=== PATIENT | female | born 1960 | race Asian ===

== ENCOUNTER 2017-01-01 19:56 | Emergency (ER) | payer BC ==
[~2017-01-01] VITALS: Ht 152.4 cm; Wt 54.5 kg
[2017-01-01 20:06] VITALS: Ht 152.4 cm; Wt 54.5 kg
[2017-01-01] MEDS ORDERED: NAPH15DR22 BOTH EYES (20:23)
--- NOTE | 2017-01-01 20:34 | ERD ---
ER Documentation Chief Complaint Date/Time DATE: 01/01/17 TIME: 20:31 Chief Complaint pt used eye drops , redness and pain HPI 56-year-old female presents to emergency department for complaints of itching burning sensation in both eyes after applying refresh eyedrops in both eyes. Patient states that she rinsed both eyes with normal saline, felt much better afterwards. Patient still some redness and some burning sensation in both eyes, 4/10 scale, not better or worse with anything. Patient denies any eye discharge. Patient denies anymore and body sensation in the eye. Patient denies any vision changes. Patient denies any direct trauma in the eye. ROS All systems reviewed and are negative except as per history of present illness. Medications Home Meds Active Scripts Naphazoline-Pheniramine* (Visine-A*) 15 Ml Drops, 2 DROP BOTH EYES Q4H Y for RED EYES, #1 BOT Prov:DERECK BOWSER [employer] 01/01/17 Allergies Allergies: Coded Allergies: No Known Allergy (Unverified , 01/01/17) PMhx/Soc Medical and Surgical Hx: pt denies Medical Hx, pt denies Surgical Hx History of Surgery: No Anesthesia Reaction: No Hx Neurological Disorder: No Hx Respiratory Disorders: No Hx Cardiac Disorders: No Hx Psychiatric Problems: No Hx Miscellaneous Medical Probl: No Hx Alcohol Use: No Hx Substance Use: No Hx Tobacco Use: No FmHx Family History: No coronary disease, No diabetes, No other Physical Exam Vitals Vital Signs Date Time Temp Pulse Resp B/P Pulse Ox O2 Delivery O2 Flow Rate FiO2 01/01/17 20:06 98.6 60 18 127/70 100 Physical Exam GENERAL: The patient is well developed and appropriate for usual state of health, in no apparent distress. HEENT: Atraumatic. Eyes are PERRL EOM intact. Bilateral eye conjunctivae noninjected, watery, no purulent discharge. Ears: Normal tympanic membrane, no erythema or bulging. No ear canal swelling. No ear discharge. Nose: normal nasal turbinates, no erythema or swelling. Normal nasal discharge. Throat: oropharynx clear. No tonsillar swelling or tonsillar exudates. No lymphadenopathy. CHEST: Clear to auscultation bilaterally. There are no rales, wheezes or rhonchi. HEART: Regular rate and rhythm. No murmurs, clicks, rubs or gallops. No S3 or S4. ABDOMEN: Soft, nontender and nondistended. Good bowel sounds. No rebound or guarding. No gross peritonitis. No gross organomegaly or masses. No Avery sign or McBurney point tenderness. BACK: No midline or flank tenderness. EXTREMITIES: Equal pulses bilaterally. There is no peripheral clubbing, cyanosis or edema. No focal swelling or erythema. Full range of motion. Grossly neurovascularly intact. NEURO: Alert and oriented. Cranial nerves 2-12 intact. Motor strength in all 4 extremities with 5/5 strength. Sensation grossly intact. Normal speech and gait. SKIN: There is no apparent rash or petechia. The skin is warm and dry. HEMATOLOGIC AND LYMPHATIC: There is no evidence of excessive bruising or lymphedema. No gross cervical, axillary, or inguinal lymphadenopathy. Procedures/MDM Medical decision making: Patient's eye redness most likely from irritation from the eyedrops. At this time, no symptoms of any eye emergencies at this time. Patient does not have any symptoms of retinal detachment, acute closed angle glaucoma, or any other eye emergencies at this time. Patient does not have any vision changes. Prescription was given for Naphcon ophthalmic solution , is advised to follow-up with primary care doctor 1-2 days for reevaluation of symptoms. Patient was advised to return to emergency department for any worsening symptoms. Next Disposition: Home. Stable. Departure Diagnosis: Primary Impression: Eye irritation Condition: Stable Patient Instructions: Conjunctivitis Caused by Irritation DERECK BOWSER NP January 01, 2017 20:34
== END 2017-01-01 20:26 | disposition home or self-care (01) ==
LOC: FTE 19:56
DX: T50.901A Poisoning by unspecified drugs, medicaments and biological substances, accidental (unintentional), initial encounter (principal); H57.8 Other specified disorders of eye and adnexa
CPT/HCPCS: 99283